=== PATIENT | male | born 1990 | race Caucasian/White ===

== ENCOUNTER 2016-10-25 19:17 | Emergency (ER) | payer MEDICAID | END 2016-10-25 21:24 | disposition home or self-care (01) | LOC: D.ER 19:17 | DX: S69.92XA Unspecified injury of left wrist, hand and finger(s), initial encounter (principal); X58.XXXA Exposure to other specified factors, initial encounter; Y93.68 Activity, volleyball (beach) (court); Y92.89 Other specified places as the place of occurrence of the external cause; M25.532 Pain in left wrist; M77.9 Enthesopathy, unspecified; S60.212A Contusion of left wrist, initial encounter; F17.200 Nicotine dependence, unspecified, uncomplicated ==

== ENCOUNTER 2017-07-09 00:16 | Emergency (ER) | payer MEDICAID ==
[2017-07-09 01:28] LABS: BASOPHILS 0.2 % (0-2); EOSINOPHILS 0.1 % (0-7); HEMATOCRIT 45.3 % (42.0-54.0); HEMOGLOBIN 15.6 g/dL (13.5-17.5); IMMATURE GRANULOCYTES 0.2 % (0-5); LYMPHOCYTES 12.7 % (15-50); MCH 30.8 pg (26.0-34.0); MCHC 34.4 g/dL (31.0-37.0); MCV 89.5 fL (80.0-100.0); MEAN PLATELET VOLUME 10.7 fL (7.4-10.4); MONOCYTES 7.2 % (2-11); NEUTROPHILS 79.6 % (40-80); PLATELET COUNT 258 10x3/uL (130-400); RBC 5.06 10x6/uL (4.20-6.10); RDW 13.2 % (11.5-14.5); WBC 13.3 10x3/uL (4.8-10.8)
[2017-07-09 01:30] LABS: APPEARANCE CLEAR (CLEAR); BILIRUBIN 1+ (NEGATIVE); COLOR DK YELLOW (YELLOW); GLUCOSE NEGATIVE (NEGATIVE); KETONE NEGATIVE (NEGATIVE); NITRITE NEGATIVE (NEGATIVE); PROTEIN NEGATIVE (NEGATIVE); UROBILINOGEN NORMAL (NORMAL)
[2017-07-09 01:36] LABS: UDS - AMPHET POSITIVE QUAL (NEGATIVE); UDS - BARB NEGATIVE QUAL (NEGATIVE); UDS - BENZO NEGATIVE QUAL (NEGATIVE); UDS - COCAINE NEGATIVE QUAL (NEGATIVE); UDS - OPIATE NEGATIVE QUAL (NEGATIVE); UDS - PCP NEGATIVE QUAL (NEGATIVE); UDS - THC POSITIVE QUAL (NEGATIVE)
[2017-07-09 02:03] LABS: ALBUMIN 4.8 g/dL (3.4-5.0); ALKALINE PHOSPHATASE 69 U/L (46-116); ALT (SGPT) 34 U/L (10-68); CALC OSMOLALITY 283 mosm/kg (275-300); CALCIUM 9.3 mg/dL (8.5-10.1); CARBON DIOXIDE 29.9 mmol/L (21.0-32.0); CHLORIDE - SERUM 101 mmol/L (98-107); CREATININE - SERUM 1.1 mg/dL (0.6-1.3); GLUCOSE 141 mg/dL (74-106); POTASSIUM - SERUM 3.1 mmol/L (3.5-5.1); PROTEIN - SERUM 8.4 g/dL (6.4-8.2); SODIUM 141 mmol/L (136-145); UREA NITROGEN 15 mg/dL (7-18); eGFR NON AFRICAN AMERICAN 85 mL/min (90-120)
== END 2017-07-09 06:44 | disposition short-term general hospital (02) ==
LOC: D.ER 00:16
PROVIDERS: Emergency Medicine
DX: F23 Brief psychotic disorder (principal); F31.9 Bipolar disorder, unspecified; F84.5 Asperger's syndrome; R44.3 Hallucinations, unspecified; R41.0 Disorientation, unspecified; F41.9 Anxiety disorder, unspecified; R45.4 Irritability and anger

== ENCOUNTER 2017-10-23 17:35 | Emergency (ER) | payer MEDICAID | END 2017-10-23 20:43 | disposition home or self-care (01) | LOC: D.ER 17:35 | DX: L02.415 Cutaneous abscess of right lower limb (principal) ==

== ENCOUNTER 2018-01-29 18:09 | Emergency (ER) | payer MEDICAID ==
[~2018-01-29] VITALS: Ht 175.3 cm; Wt 63.6 kg
[2018-01-29 18:12] VITALS: BP 109/63; Ht 175.3 cm; Wt 63.6 kg
[2018-02-11 13:34] VITALS: Ht 175.3 cm; Wt 63.6 kg
== END 2018-01-29 18:30 | disposition left against medical advice (07) ==
LOC: D.ER 18:09
DX: R41.82 Altered mental status, unspecified (principal)

== ENCOUNTER 2018-02-01 21:30 | Inpatient (IN) | payer MEDICAID ==
[~2018-02-01] VITALS: Ht 175.3 cm; Wt 61.2 kg
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
[2018-02-01 21:55] VITALS: BP 130/84
[2018-02-01 22:07] LABS: HEMATOCRIT 41.4 % (42.0-54.0); HEMOGLOBIN 13.9 g/dL (13.5-17.5); MCH 30.3 pg (26.0-34.0); MCHC 33.6 g/dL (31.0-37.0); MCV 90.2 fL (80.0-100.0); MEAN PLATELET VOLUME 11.1 fL (7.4-10.4); PLATELET COUNT 245 10x3/uL (130-400); RBC 4.59 10x6/uL (4.20-6.10); RDW 13.6 % (11.5-14.5); WBC 13.8 10x3/uL (4.8-10.8)
[2018-02-01 22:17] LABS: ALBUMIN 3.6 g/dL (3.4-5.0); ALKALINE PHOSPHATASE 88 U/L (46-116); ALT (SGPT) 36 U/L (10-68); BILIRUBIN - TOTAL 0.23 mg/dL (0.2-1.3); CALC OSMOLALITY 282 mosm/kg (275-300); CALCIUM 8.4 mg/dL (8.5-10.1); CARBON DIOXIDE 23.4 mmol/L (21.0-32.0); CHLORIDE - SERUM 105 mmol/L (98-107); GLUCOSE 115 mg/dL (74-106); POTASSIUM - SERUM 4.5 mmol/L (3.5-5.1); PROTEIN - SERUM 6.8 g/dL (6.4-8.2); SODIUM 142 mmol/L (136-145); UREA NITROGEN 11 mg/dL (7-18); eGFR NON AFRICAN AMERICAN > 90 mL/min (90-120)
[2018-02-01 22:25] LABS: APTT 24.6 SECONDS (22.8-39.4); INR 0.96 (0.85-1.17); PROTIME 12.4 SECONDS (11.6-15.0)
[2018-02-01 22:31] LABS: BASOPHILS 1 % (0-2); EOSINOPHILS 3 % (0-7); LYMPHOCYTES 58 % (15-50); MONOCYTES 3 % (2-11); NEUTROPHILS 35 % (40-80); PLATELET ESTIMATE NORMAL
[2018-02-01 22:45] VITALS: BP 123/80
[2018-02-01 23:45] VITALS: BP 152/88
[2018-02-02] VITALS (18 sets, daily range): BP systolic 124–146; BP diastolic 71–98; Ht 175.3 cm; Wt 61.2 kg
[2018-02-03] VITALS (18 sets, daily range): BP systolic 110–140; BP diastolic 69–95
[2018-02-03 04:45] LABS: BASOPHILS 0.2 % (0-2); EOSINOPHILS 0 % (0-7); HEMATOCRIT 43.9 % (42.0-54.0); HEMOGLOBIN 14.6 g/dL (13.5-17.5); IMMATURE GRANULOCYTES 0.3 % (0-5); LYMPHOCYTES 8.1 % (15-50); MCH 29.7 pg (26.0-34.0); MCHC 33.3 g/dL (31.0-37.0); MCV 89.4 fL (80.0-100.0); MEAN PLATELET VOLUME 10.6 fL (7.4-10.4); MONOCYTES 4.7 % (2-11); NEUTROPHILS 86.7 % (40-80); PLATELET COUNT 215 10x3/uL (130-400); RBC 4.91 10x6/uL (4.20-6.10); RDW 14.2 % (11.5-14.5)
[2018-02-03 04:46] LABS: CALC OSMOLALITY 270 mosm/kg (275-300); CALCIUM 7.4 mg/dL (8.5-10.1); CHLORIDE - SERUM 103 mmol/L (98-107); CREATININE - SERUM 0.8 mg/dL (0.6-1.3); GLUCOSE 143 mg/dL (74-106); SODIUM 134 mmol/L (136-145); UREA NITROGEN 14 mg/dL (7-18); eGFR NON AFRICAN AMERICAN > 90 mL/min (90-120)
[2018-02-04 04:30] VITALS: BP 127/81
[2018-02-04 09:11] VITALS: BP 116/69
[2018-02-04 09:26] VITALS: BP 116/69
[2018-02-04 14:32] VITALS: BP 131/73
[2018-02-04 17:00] VITALS: BP 121/62
[2018-02-04 23:56] VITALS: BP 109/63
[2018-02-05 00:44] VITALS: BP 109/63
[2018-02-05 03:44] VITALS: BP 113/66
[2018-02-05 08:33] VITALS: BP 112/59
[2018-02-05 12:06] VITALS: BP 104/59
[2018-02-05 15:47] VITALS: BP 121/69
[2018-02-05 20:13] VITALS: BP 118/49
[2018-02-06 03:56] VITALS: BP 105/67
[2018-02-06 06:41] LABS: CALC OSMOLALITY 279 mosm/kg (275-300); CALCIUM 7.4 mg/dL (8.5-10.1); CARBON DIOXIDE 32.8 mmol/L (21.0-32.0); CHLORIDE - SERUM 104 mmol/L (98-107); CREATININE - SERUM 0.8 mg/dL (0.6-1.3); MAGNESIUM - SERUM 2.1 mg/dL (1.8-2.4); SODIUM 141 mmol/L (136-145); UREA NITROGEN 11 mg/dL (7-18); eGFR NON AFRICAN AMERICAN > 90 mL/min (90-120)
[2018-02-06 06:42] LABS: GLUCOSE 92 mg/dL (74-106)
[2018-02-06 06:57] LABS: BASOPHILS 0.2 % (0-2); EOSINOPHILS 4.8 % (0-7); IMMATURE GRANULOCYTES 0.7 % (0-5); LYMPHOCYTES 18.2 % (15-50); MCH 29.5 pg (26.0-34.0); MCHC 33.1 g/dL (31.0-37.0); MCV 89.2 fL (80.0-100.0); MEAN PLATELET VOLUME 9.2 fL (7.4-10.4); MONOCYTES 8.9 % (2-11); NEUTROPHILS 67.2 % (40-80); PLATELET COUNT 185 10x3/uL (130-400); RDW 14.2 % (11.5-14.5); WBC 8.6 10x3/uL (4.8-10.8)
[2018-02-06 06:58] LABS: HEMATOCRIT 14.8 % (42.0-54.0); HEMOGLOBIN 4.9 g/dL (13.5-17.5)
[2018-02-06 06:59] LABS: RBC 1.66 10x6/uL (4.20-6.10)
[2018-02-06 08:24] VITALS: BP 115/65
[2018-02-06 08:27] LABS: APTT 35.6 SECONDS (22.8-39.4); INR 1.05 (0.85-1.17); PROTIME 13.3 SECONDS (11.6-15.0)
[2018-02-06 09:02] LABS: HEMOGLOBIN 5.2 g/dL (13.5-17.5)
[2018-02-06 09:03] LABS: HEMATOCRIT 15.9 % (42.0-54.0)
[2018-02-06 19:54] VITALS: BP 122/66
[2018-02-06 23:32] VITALS: BP 114/63
[2018-02-07 05:18] VITALS: BP 116/74
[2018-02-07 05:41] LABS: BASOPHILS 0.3 % (0-2); EOSINOPHILS 4.1 % (0-7); LYMPHOCYTES 14.6 % (15-50); MCH 28.6 pg (26.0-34.0); MEAN PLATELET VOLUME 9.4 fL (7.4-10.4); PLATELET COUNT 212 10x3/uL (130-400)
[2018-02-07 05:48] LABS: HEMATOCRIT 25.3 % (42.0-54.0); HEMOGLOBIN 8.6 g/dL (13.5-17.5); MCV 84.1 fL (80.0-100.0); RBC 3.01 10x6/uL (4.20-6.10); WBC 10.8 10x3/uL (4.8-10.8)
[2018-02-07 05:53] LABS: CALC OSMOLALITY 270 mosm/kg (275-300); CALCIUM 7.6 mg/dL (8.5-10.1); CARBON DIOXIDE 29.6 mmol/L (21.0-32.0); CHLORIDE - SERUM 103 mmol/L (98-107); CREATININE - SERUM 0.7 mg/dL (0.6-1.3); GLUCOSE 97 mg/dL (74-106); MAGNESIUM - SERUM 1.9 mg/dL (1.8-2.4); POTASSIUM - SERUM 3.1 mmol/L (3.5-5.1); SODIUM 136 mmol/L (136-145); UREA NITROGEN 10 mg/dL (7-18); eGFR NON AFRICAN AMERICAN > 90 mL/min (90-120)
[2018-02-07 07:49] VITALS: BP 118/76
[2018-02-07 12:12] VITALS: BP 114/75
[2018-02-07 15:32] VITALS: BP 107/73
[2018-02-07 19:40] VITALS: BP 98/63
[2018-02-07 23:11] VITALS: BP 104/67
[2018-02-08 04:23] VITALS: BP 106/59
[2018-02-08 07:58] VITALS: BP 111/63
[2018-02-08 10:09] LABS: CALC OSMOLALITY 266 mosm/kg (275-300); CHLORIDE - SERUM 100 mmol/L (98-107); CREATININE - SERUM 0.8 mg/dL (0.6-1.3); GLUCOSE 117 mg/dL (74-106); MAGNESIUM - SERUM 2.3 mg/dL (1.8-2.4); SODIUM 134 mmol/L (136-145); UREA NITROGEN 8 mg/dL (7-18); eGFR NON AFRICAN AMERICAN > 90 mL/min (90-120)
[2018-02-08 10:34] LABS: BASOPHILS 0.2 % (0-2); EOSINOPHILS 2.2 % (0-7); HEMATOCRIT 28.9 % (42.0-54.0); HEMOGLOBIN 9.6 g/dL (13.5-17.5); IMMATURE GRANULOCYTES 1.8 % (0-5); LYMPHOCYTES 13.1 % (15-50); MCH 28.6 pg (26.0-34.0); MCHC 33.2 g/dL (31.0-37.0); MEAN PLATELET VOLUME 9.4 fL (7.4-10.4); MONOCYTES 10.9 % (2-11); NEUTROPHILS 71.8 % (40-80); RBC 3.36 10x6/uL (4.20-6.10); RDW 15.4 % (11.5-14.5); WBC 11.6 10x3/uL (4.8-10.8)
[2018-02-08 10:36] LABS: PLATELET COUNT 312 10x3/uL (130-400)
[2018-02-08 12:43] VITALS: BP 113/68
[2018-02-08 16:20] VITALS: BP 123/75
[2018-02-08 20:52] VITALS: BP 109/68
[2018-02-09 00:30] VITALS: BP 104/54
[2018-02-09 06:17] VITALS: BP 133/69
[2018-02-09 07:43] VITALS: BP 115/62
[2018-02-09 10:11] LABS: HEMATOCRIT 29.2 % (42.0-54.0); HEMOGLOBIN 9.7 g/dL (13.5-17.5)
[2018-02-09] MEDS ORDERED: HYDROCODON-ACE1 EAC7 PO (11:14)
== END 2018-02-09 15:37 | disposition home or self-care (01) | DRG 405 ==
LOC: D.ER 21:30 → D.MS 22:46 → OBSVTIME 22:46 → D.ICU 02-02 12:17 → D.MS 02-02 14:21 → D.ICU 02-02 15:03 → D.MS 02-03 19:15
PROVIDERS: Emergency Medicine; Surgery
PROC: 0FT40ZZ Resection of Gallbladder, Open Approach (ICD-10-PCS; 2018-02-02)
PROC: 0D960ZZ Drainage of Stomach, Open Approach (ICD-10-PCS; 2018-02-02)
PROC: 0HQ7XZZ Repair Abdomen Skin, External Approach (ICD-10-PCS; 2018-02-02)
PROC: 0FB00ZZ Excision of Liver, Open Approach (ICD-10-PCS; principal; 2018-02-02 10:00)
PROC: 0DQ70ZZ Repair Stomach, Pylorus, Open Approach (ICD-10-PCS; 2018-02-02 10:00)
DX: S36.113A Laceration of liver, unspecified degree, initial encounter (principal); K65.9 Peritonitis, unspecified; S31.611A Laceration without foreign body of abdominal wall, left upper quadrant with penetration into peritoneal cavity, initial encounter; S36.123A Laceration of gallbladder, initial encounter; F19.20 Other psychoactive substance dependence, uncomplicated; X99.1XXA Assault by knife, initial encounter; Y93.9 Activity, unspecified; J45.909 Unspecified asthma, uncomplicated; F17.210 Nicotine dependence, cigarettes, uncomplicated; Z59.0 Homelessness

== ENCOUNTER 2018-02-11 13:25 | Emergency (ER) | payer MEDICAID ==
[~2018-02-11] VITALS: Ht 175.3 cm; Wt 65.9 kg
[~2018-02-11 13:25] MED LIST: HYDROCODON-ACE1 EAC7 PO
[2018-02-11 13:34] VITALS: Ht 175.3 cm; Wt 65.9 kg
[2018-02-11] MEDS ORDERED: TORADOL10 MG PO (15:48)
[2018-02-11 15:58] VITALS: BP 122/068
== END 2018-02-11 15:58 | disposition home or self-care (01) ==
LOC: D.ER 13:25
DX: G89.18 Other acute postprocedural pain (principal); Z76.0 Encounter for issue of repeat prescription

== ENCOUNTER 2018-09-20 23:22 | Emergency (ER) | payer MEDICAID ==
[~2018-09-20] VITALS: Ht 175.3 cm; Wt 68.2 kg
[~2018-09-20 23:22] MED LIST changes: +TORADOL10 MG PO
[2018-09-20 23:24] VITALS: Ht 175.3 cm; Wt 68.2 kg
[2018-09-20] MEDS ORDERED: SEROQUEL200 MG (23:26)
[2018-09-20 23:54] LABS: BASOPHILS 0.5 % (0-2); EOSINOPHILS 2.8 % (0-7); HEMOGLOBIN 13.3 g/dL (13.5-17.5); IMMATURE GRANULOCYTES 0.3 % (0-5); LYMPHOCYTES 29.7 % (15-50); MCH 30.1 pg (26.0-34.0); MCHC 33.3 g/dL (31.0-37.0); MCV 90.5 fL (80.0-100.0); MEAN PLATELET VOLUME 10.2 fL (7.4-10.4); MONOCYTES 6.8 % (2-11); NEUTROPHILS 59.9 % (40-80); RBC 4.42 10x6/uL (4.20-6.10); RDW 12.9 % (11.5-14.5); WBC 7.8 10x3/uL (4.8-10.8)
[2018-09-20 23:57] LABS: PLATELET COUNT 208 10x3/uL (130-400)
[2018-09-21 00:14] LABS: ALBUMIN 3.2 g/dL (3.4-5.0); ALKALINE PHOSPHATASE 78 U/L (46-116); ALT (SGPT) 36 U/L (10-68); BILIRUBIN - TOTAL 0.12 mg/dL (0.2-1.3); CALC OSMOLALITY 278 mosm/kg (275-300); CALCIUM 7.5 mg/dL (8.5-10.1); CARBON DIOXIDE 29.4 mmol/L (21.0-32.0); CHLORIDE - SERUM 102 mmol/L (98-107); CREATININE - SERUM 0.8 mg/dL (0.6-1.3); GLUCOSE 97 mg/dL (74-106); POTASSIUM - SERUM 3.7 mmol/L (3.5-5.1); PROTEIN - SERUM 6.4 g/dL (6.4-8.2); SODIUM 137 mmol/L (136-145); UREA NITROGEN 26 mg/dL (7-18); eGFR NON AFRICAN AMERICAN > 90 mL/min (90-120)
[2018-09-21 00:18] LABS: THYROID STIMULATING HORMONE 3.27 uIU/mL (0.36-3.74)
[2018-09-21 02:18] LABS: UDS - AMPHET NEGATIVE QUAL (NEGATIVE); UDS - BARB NEGATIVE QUAL (NEGATIVE); UDS - BENZO NEGATIVE QUAL (NEGATIVE); UDS - COCAINE NEGATIVE QUAL (NEGATIVE); UDS - OPIATE NEGATIVE QUAL (NEGATIVE); UDS - PCP NEGATIVE QUAL (NEGATIVE); UDS - THC NEGATIVE QUAL (NEGATIVE)
[2018-09-21 06:00] VITALS: BP 104/53
== END 2018-09-21 06:00 ==
LOC: D.ER 23:22
PROVIDERS: Family Medicine
DX: I95.2 Hypotension due to drugs (principal); T43.595A Adverse effect of other antipsychotics and neuroleptics, initial encounter; Y92.019 Unspecified place in single-family (private) house as the place of occurrence of the external cause

== ENCOUNTER 2019-01-09 20:36 | Emergency (ER) | payer MEDICAID ==
[~2019-01-09] VITALS: Ht 175.3 cm; Wt 65.8 kg
[~2019-01-09 20:36] MED LIST changes: +SEROQUEL200 MG
[2019-01-09 20:43] VITALS: BP 128/95; Ht 175.3 cm; Wt 65.8 kg
== END 2019-01-09 21:00 | disposition left against medical advice (07) ==
LOC: D.ER 20:36
DX: F99 Mental disorder, not otherwise specified (principal)

== ENCOUNTER 2019-02-23 11:45 | Emergency (ER) | payer SELFPAY ==
[~2019-02-23] VITALS: Ht 175.3 cm; Wt 65.9 kg
[2019-02-23 11:52] VITALS: Ht 175.3 cm; Wt 65.9 kg
--- NOTE | 2019-02-23 12:29 | NUR ---
According to the suicide assessment the patient scores low for suicidal ideations at this time. He does not require a 1:1 observation.
[2019-02-23 22:49] VITALS: BP 100/65
== END 2019-02-23 22:49 | disposition home or self-care (01) ==
LOC: D.ER 11:45
DX: F15.10 Other stimulant abuse, uncomplicated (principal)

== ENCOUNTER 2019-03-01 11:59 | Emergency (ER) | payer SELFPAY ==
[~2019-03-01] VITALS: Ht 175.3 cm; Wt 61.4 kg
[2019-03-01 12:07] VITALS: BP 121/64; Ht 175.3 cm; Wt 61.4 kg
[2019-03-01] MEDS ORDERED: KEFLEX500 MG PO (13:29)
[2019-03-01] MEDS ORDERED: SULFAMETHOXAZOL1 TA2 PO (13:29)
--- NOTE | 2019-03-05 01:11 | NUR ---
DR. HADDAD NOTIFIED AND SITTER ORDERED. SITTER AT BEDSIDE. NOTIFIED CHARGE NURSE AND ATTENDING IN REGARDS TO ASSEESSMENT FINDINGS. RESOURCES GIVEN TO PT AND SAFETY PLAN INITIATED.
== END 2019-03-01 13:21 | disposition left against medical advice (07) ==
LOC: D.ER 11:59
DX: L03.114 Cellulitis of left upper limb (principal)

== ENCOUNTER 2019-03-04 19:05 | Emergency (ER) | payer MEDICAID ==
[~2019-03-04] VITALS: Ht 175.3 cm; Wt 64.8 kg
[~2019-03-04 19:05] MED LIST changes: +KEFLEX500 MG PO; +SULFAMETHOXAZOL1 TA2 PO
[2019-03-04 19:45] VITALS: Ht 175.3 cm; Wt 64.8 kg
[2019-03-04 20:19] LABS: BASOPHILS 0.5 % (0-2); EOSINOPHILS 1.6 % (0-7); HEMATOCRIT 40.6 % (42.0-54.0); HEMOGLOBIN 13.8 g/dL (13.5-17.5); IMMATURE GRANULOCYTES 0.3 % (0-5); LYMPHOCYTES 28.4 % (15-50); MCH 29.9 pg (26.0-34.0); MCV 87.9 fL (80.0-100.0); MEAN PLATELET VOLUME 11.1 fL (7.4-10.4); MONOCYTES 8.6 % (2-11); NEUTROPHILS 60.6 % (40-80); PLATELET COUNT 240 10x3/uL (130-400); RBC 4.62 10x6/uL (4.20-6.10); RDW 13.2 % (11.5-14.5); WBC 7.4 10x3/uL (4.8-10.8)
[2019-03-04 20:35] LABS: ALBUMIN 3.6 g/dL (3.4-5.0); ALKALINE PHOSPHATASE 74 U/L (46-116); ALT (SGPT) 32 U/L (10-68); BILIRUBIN - TOTAL 0.33 mg/dL (0.2-1.3); CALC OSMOLALITY 282 mosm/kg (275-300); CALCIUM 8.6 mg/dL (8.5-10.1); CARBON DIOXIDE 33.3 mmol/L (21.0-32.0); CHLORIDE - SERUM 106 mmol/L (98-107); CREATININE - SERUM 1.1 mg/dL (0.6-1.3); GLUCOSE 75 mg/dL (74-106); POTASSIUM - SERUM 3.8 mmol/L (3.5-5.1); PROTEIN - SERUM 7.3 g/dL (6.4-8.2); SODIUM 142 mmol/L (136-145); UREA NITROGEN 14 mg/dL (7-18); eGFR NON AFRICAN AMERICAN 84 mL/min (90-120)
[2019-03-04 20:52] LABS: APPEARANCE CLEAR (CLEAR); BILIRUBIN NEGATIVE (NEGATIVE); COLOR YELLOW (YELLOW); GLUCOSE NEGATIVE (NEGATIVE); KETONE NEGATIVE (NEGATIVE); NITRITE NEGATIVE (NEGATIVE); PROTEIN NEGATIVE (NEGATIVE); UROBILINOGEN NORMAL (NORMAL)
[2019-03-04 20:55] LABS: UDS - AMPHET NEGATIVE QUAL (NEGATIVE); UDS - BARB NEGATIVE QUAL (NEGATIVE); UDS - BENZO NEGATIVE QUAL (NEGATIVE); UDS - COCAINE NEGATIVE QUAL (NEGATIVE); UDS - OPIATE NEGATIVE QUAL (NEGATIVE); UDS - PCP NEGATIVE QUAL (NEGATIVE); UDS - THC NEGATIVE QUAL (NEGATIVE)
[2019-03-05] MEDS ORDERED: CLEOCIN HCL300 MG PO (01:34)
[2019-03-05 02:07] VITALS: BP 132/89
== END 2019-03-05 03:39 ==
LOC: D.ER 19:05
PROVIDERS: Family Medicine
DX: R45.851 Suicidal ideations (principal); L03.012 Cellulitis of left finger; K08.89 Other specified disorders of teeth and supporting structures

== ENCOUNTER 2019-05-07 19:14 | Emergency (ER) | payer MEDICAID ==
[~2019-05-07] VITALS: Ht 175.3 cm; Wt 65.9 kg
[~2019-05-07 19:14] MED LIST changes: +CLEOCIN HCL300 MG PO
[2019-05-07 19:21] VITALS: Ht 175.3 cm; Wt 65.9 kg
[2019-05-07] MEDS ORDERED: ULTRAM50 MG PO (21:42)
[2019-05-07 22:38] VITALS: BP 122/68
== END 2019-05-07 22:38 | disposition home or self-care (01) ==
LOC: D.ER 19:14
DX: S82.401A Unspecified fracture of shaft of right fibula, initial encounter for closed fracture (principal); V09.9XXA Pedestrian injured in unspecified transport accident, initial encounter; F84.5 Asperger's syndrome; S00.81XA Abrasion of other part of head, initial encounter; F17.210 Nicotine dependence, cigarettes, uncomplicated

== ENCOUNTER 2019-07-03 19:55 | Emergency (ER) | payer MEDICAID ==
[~2019-07-03] VITALS: Ht 175.3 cm; Wt 65.9 kg
[~2019-07-03 19:55] MED LIST changes: +ULTRAM50 MG PO
[2019-07-03 20:09] VITALS: Ht 175.3 cm; Wt 65.9 kg
[2019-07-03] MEDS ORDERED: AUGMENTIN 875-11 TAB PO (21:00)
[2019-07-03 21:44] LABS: BASOPHILS 0.4 % (0-2); EOSINOPHILS 4.1 % (0-7); HEMATOCRIT 39.2 % (42.0-54.0); HEMOGLOBIN 12.5 g/dL (13.5-17.5); IMMATURE GRANULOCYTES 0.2 % (0-5); LYMPHOCYTES 18.1 % (15-50); MCH 29.4 pg (26.0-34.0); MCHC 31.9 g/dL (31.0-37.0); MCV 92.2 fL (80.0-100.0); MEAN PLATELET VOLUME 9.7 fL (7.4-10.4); MONOCYTES 8.2 % (2-11); RBC 4.25 10x6/uL (4.20-6.10); RDW 13.5 % (11.5-14.5); WBC 9.2 10x3/uL (4.8-10.8)
[2019-07-03 21:48] LABS: PLATELET COUNT 318 10x3/uL (130-400)
[2019-07-03 21:52] LABS: CALC OSMOLALITY 280 mosm/kg (275-300); CALCIUM 8.1 mg/dL (8.5-10.1); CARBON DIOXIDE 30.5 mmol/L (21.0-32.0); CHLORIDE - SERUM 104 mmol/L (98-107); GLUCOSE 74 mg/dL (74-106); POTASSIUM - SERUM 3.7 mmol/L (3.5-5.1); SODIUM 141 mmol/L (136-145); UREA NITROGEN 14 mg/dL (7-18); eGFR NON AFRICAN AMERICAN > 90 mL/min (90-120)
[2019-07-03 22:05] LABS: ALBUMIN 3.1 g/dL (3.4-5.0); ALKALINE PHOSPHATASE 86 U/L (46-116); ALT (SGPT) 28 U/L (10-68); BILIRUBIN - TOTAL 0.37 mg/dL (0.2-1.3); PROTEIN - SERUM 7.4 g/dL (6.4-8.2)
--- NOTE | 2019-07-03 22:05 | NUR ---
PATIENT CAME IN TO ER WITH AN INTITIAL COMPLAINT OF PAIN, THEN SAID HE WAS SUICIDIAL, THIS PATIENT IS AVOIDING EYE CONTACT, HE IS HESTITATING ON ANSWERING QUESTIONS. HE APPEARS PARANOID, HIS EYES ARE "DARTING". HE IS REFUSING TO SIGN THE SAFETY PLAN, PATIENT WILL BE MOVED TO A ROOM WITH A MONITOR AND WILL BE PLACED ON ONE TO ONE SUPERVISION.
[2019-07-03 22:47] VITALS: BP 132/84
== END 2019-07-03 22:40 | disposition home or self-care (01) ==
LOC: D.ER 19:55
PROVIDERS: Family Medicine
DX: S61.217A Laceration without foreign body of left little finger without damage to nail, initial encounter (principal); W45.8XXA Other foreign body or object entering through skin, initial encounter; Y93.9 Activity, unspecified; Y92.9 Unspecified place or not applicable; F84.5 Asperger's syndrome; M79.661 Pain in right lower leg